=== PATIENT | male | born 1955 | race Caucasian/White ===

== ENCOUNTER 2018-01-06 13:27 | Emergency (ER) | payer OTHER ==
[~2018-01-06] VITALS: Ht 157.5 cm; Wt 72.6 kg
[~2018-01-06 13:27] MED LIST: CLINDAMYCI600 MG/50 IV; LAC PO; MOTRIN800 MG PO; SANOINT TOP
[2018-01-06 13:35] VITALS: Ht 157.5 cm; Wt 72.6 kg
[2018-01-06 15:32] LABS: BASOPHIL % 0.4 % (0-2); PLATELET COUNT 248 x10^3mcL (130-400); RED CELL DISTRIBUTION WIDTH 13.8 % (11.5-14.5)
[2018-01-06 16:15] LABS: ERYTHROCYTE SED RATE 16 mm/hr (0-20)
[2018-01-06 16:27] VITALS: BP 125/85
== END 2018-01-06 16:32 | disposition home or self-care (01) ==
LOC: ED 13:27
PROVIDERS: Specialist
DX: L97.519 Non-pressure chronic ulcer of other part of right foot with unspecified severity (principal); E78.00 Pure hypercholesterolemia, unspecified
CPT/HCPCS: 36415

== ENCOUNTER 2019-07-18 18:33 | Emergency (ER) | payer OTHER ==
[~2019-07-18] VITALS: Ht 165.1 cm; Wt 72.6 kg
[2019-07-18 18:39] VITALS: BP 164/80; Ht 165.1 cm; Wt 72.6 kg
== END 2019-07-18 19:36 | disposition home or self-care (01) ==
LOC: ED 18:33
DX: S01.01XA Laceration without foreign body of scalp, initial encounter (principal); E78.00 Pure hypercholesterolemia, unspecified; V29.3XXA Motorcycle rider (driver) (passenger) injured in unspecified nontraffic accident, initial encounter; Y93.I9 Activity, other involving external motion; Y92.413 State road as the place of occurrence of the external cause; Y99.8 Other external cause status
CPT/HCPCS: 90715